=== PATIENT | male | born 1945 | race Caucasian/White ===

== ENCOUNTER 2025-07-30 08:42 | Outpatient (CLI) | payer OTHER, SELFPAY | END 2025-07-30 08:43 | disposition home or self-care (01) | LOC: WOUND 08:52 | PROVIDERS: Visit Provider Nurse Practitioner Family | DX: E11.621 Type 2 diabetes mellitus with foot ulcer (principal); L97.512 Non-pressure chronic ulcer of other part of right foot with fat layer exposed; L97.412 Non-pressure chronic ulcer of right heel and midfoot with fat layer exposed; L97.522 Non-pressure chronic ulcer of other part of left foot with fat layer exposed; I48.11 Longstanding persistent atrial fibrillation; Z79.01 Long term (current) use of anticoagulants; I07.1 Rheumatic tricuspid insufficiency; I50.23 Acute on chronic systolic (congestive) heart failure; Z79.84 Long term (current) use of oral hypoglycemic drugs | CPT/HCPCS: 11042; G0463 ==

== ENCOUNTER 2025-08-06 12:26 | Outpatient (CLI) | payer OTHER, SELFPAY | END 2025-08-06 12:27 | disposition home or self-care (01) | LOC: WOUND 12:26 | PROVIDERS: Visit Provider Nurse Practitioner Family | DX: E11.621 Type 2 diabetes mellitus with foot ulcer (principal); L97.518 Non-pressure chronic ulcer of other part of right foot with other specified severity; L97.512 Non-pressure chronic ulcer of other part of right foot with fat layer exposed; L97.522 Non-pressure chronic ulcer of other part of left foot with fat layer exposed; I48.11 Longstanding persistent atrial fibrillation; Z79.84 Long term (current) use of oral hypoglycemic drugs; Z79.01 Long term (current) use of anticoagulants | CPT/HCPCS: 97597 ==

== ENCOUNTER 2025-08-13 09:24 | Outpatient (CLI) | payer MEDICARE, OTHER, SELFPAY | END 2025-08-13 09:25 | disposition home or self-care (01) | LOC: WOUND 09:24 | PROVIDERS: Visit Provider Physician Assistant | DX: E11.621 Type 2 diabetes mellitus with foot ulcer (principal); L97.518 Non-pressure chronic ulcer of other part of right foot with other specified severity; L97.512 Non-pressure chronic ulcer of other part of right foot with fat layer exposed; Z79.84 Long term (current) use of oral hypoglycemic drugs | CPT/HCPCS: 97597 ==

== ENCOUNTER 2025-08-23 09:44 | Outpatient (CLI) | payer MEDICARE, OTHER, SELFPAY ==
--- NOTE | 2025-08-23 09:45 | CRLHL7_ITS ---
For Patients: As a result of the Century Cures Act, medical imaging exams and procedure reports are released immediately into your electronic medical record. You may view this report before your referring provider. If you have questions, please contact your health care provider. Indication: Plantar foot wound Technique: Right foot 3 views Comparison: None Findings: Plantar and posterior calcaneal spurs. Vascular calcifications. Dorsal spurring at the talonavicular joint. No periostitis or cortical destruction. No fracture. Hallux valgus with bunion. Chronic changes to the medial malleolus. Impression: No osteomyelitis. Dictated by Eliel Alarcon MD @ 08/23/2025 11:25:29 AM (Electronically Signed)
== END 2025-08-23 09:45 | disposition home or self-care (01) ==
LOC: RAD 09:45
PROVIDERS: Visit Provider Physician Assistant
DX: E11.621 Type 2 diabetes mellitus with foot ulcer (principal); S91.301D Unspecified open wound, right foot, subsequent encounter
CPT/HCPCS: 73630